=== PATIENT | female | born 2000 | race Two or more races ===

== ENCOUNTER 2025-09-26 15:55 | Observation (INO) | payer MEDICAID, SELFPAY ==
[2025-09-26] VITALS (22 sets, daily range): BP systolic 134; BP diastolic 72; PULSE 85–155; RESP 20–99; TEMP 36.9; O2SAT 96–99; BMI 35.4
--- NOTE | 2025-09-26 16:47 | XR_ITS ---
Examination: Complete OB ultrasound greater than 14 weeks Date and time of exam: September 26, 2025, 1700 hours INDICATIONS: Onset vaginal bleeding beginning 7 hours ago Findings: Viable intrauterine single fetus with single amniotic sac presentation cephalic spine maternal left Cardiac motion 157 bpm Placenta anterior grade 2 Medical cord insertion seen Amniotic fluid index 11.1 cm spine visualized Cervix 2.8 cm Ovaries obscured by the gestation. Composite estimated gestational age based on BPD, head circumference, abdominal circumference, femur length is 36 weeks 0 days Estimated weight 3169 g. Survey of intracranial anatomy, spinal anatomy, abdominal anatomy, four-chamber heart performed with no abnormalities identified. Impression: Viable intrauterine gestation in cephalic presentation No placental abruption.
== END 2025-09-26 18:34 | disposition home or self-care (01) ==
PROVIDERS: Admitting Provider Specialist; Visit Provider Specialist
DX: O46.93 Antepartum hemorrhage, unspecified, third trimester (principal); Z3A.36 36 weeks gestation of pregnancy
CPT/HCPCS: 59025; 59899; 76805

== ENCOUNTER 2025-09-26 21:47 | Inpatient (IN) | payer MEDICAID, SELFPAY ==
[2025-09-26] VITALS (9 sets, daily range): BP systolic 120–159; BP diastolic 70–96; PULSE 90–137; RESP 18–100; TEMP 37.2; O2SAT 97–98; BMI 35.0
[2025-09-26] MEDS: Ampicillin Inj 2,000 MG in SODIUM CHLORIDE 0.9% (POP) 100 ML 200 MG IV (22:45)
[2025-09-26] MEDS: fentaNYL CIT INJ 50 mCg/ML AMP 2ML 100 MCG IVP (22:45)
--- NOTE | 2025-09-26 22:57 | PD.LDHP ---
Documentation for date of: 09/26/25 OB Labor/Induct. HPI History of Present Illness : 5 Para: 4 Term pregnancies: 4 pregnancies: 0 Living children: 4 History of Abortions: Spontaneous and Elective: 0 History of Vaginal deliveries: 4 History of sections: No History of : No Date of last menstrual period: 01/16/25 AZIZA: 10/23/25 Gestational Age (weeks): 36 Gestational Age (days): 1 Gestational age based on last menstrual period: 36 Comments: H and P dictated on the STAT line #9 in [employer] : [id number] History of Present Adequate Care: No Past Medical History Surgical History SURGICAL: Negative Section Meds Home Medications and Allergies Home Medications ?Medication ?Instructions ?Recorded ?Confirmed ?Type vitamins-iron fumarate 27 1 tab PO QDAY 06/17/20 09/26/25 History mg iron-folic acid 0.8 mg tablet ( Vitamin) Allergies Allergy/AdvReac Type Severity Reaction Status Date / Time No Known Drug Allergies Allergy Unknown Verified 09/26/25 22:56 OB Exam Physical Exam Vital signs: Pulse Resp BP Pulse Ox 137 H 18 120/79 97 09/26/25 22:28 09/26/25 22:15 09/26/25 22:28 09/26/25 22:32
[2025-09-26 23:06] LABS: Basophils # (Auto) 0.0 Thou/mm3 (0.0-0.2); Basophils % (Auto) 0 % (0-2.5); Eosinophils # (Auto) 0.0 Thou/mm3 (0.0-0.5); Eosinophils % (Auto) 0 % (0-10); Hematocrit 36.2 % (36.0-46.0); Hemoglobin 12.7 g/dL (12.0-16.0); Immature Granulocytes Auto 0.11 Thou/mm3 (0.00-0.00); Lymphocytes # (Auto) 2.4 Thou/mm3 (1.0-4.8); Lymphocytes % (Auto) 22 % (10-50); Mean Corpuscular HGB Conc 35.1 g/dl (31.0-37.0); Mean Corpuscular Hemoglobin 31.3 pg (25.0-35.0); Mean Corpuscular Volume 89 fL (80-100); Monocytes # (Auto) 0.7 Thou/mm3 (0.0-0.8); Monocytes % (Auto) 6 % (0-12); Neutrophils # (Auto) 7.7 Thou/mm3 (1.8-7.7); Neutrophils % (Auto) 71 % (37-80); Nucleated Red Blood Cell # 0.00 Thou/mm3 (0.00-0.00); Nucleated Red Blood Cell % 0 /100 WBC (0); Platelet Count 232 Thou/mm3 (140-440); RDW Standard Deviation 41.5 fL (36.4-46.3); Red Blood Count 4.06 Miln/mm3 (4.00-5.20); White Blood Count 10.9 Thou/mm3 (3.6-11.0)
[2025-09-26 23:20] LABS: Alanine Aminotransferase 16 U/L (10-49); Albumin, Serum 4.0 gm/dL (3.5-5.0); Albumin/Globulin Ratio 1.7 (1.2-2.2); Alkaline Phosphatase 115 U/L (46-116); Anion Gap 13 (7-16); Aspartate Amino Transferase 20 U/L (0-34); BUN/Creatinine Ratio 12 Ratio (12-20); Bilirubin,Total 0.5 mg/dL (0.3-1.2); Blood Urea Nitrogen 7 mg/dL (9-23); Calcium 8.9 mg/dL (8.3-10.6); Calcium (Corrected) 8.9 mg/dL (8.5-10.1); Carbon Dioxide 19.6 mMol/L (20.0-31.0); Chloride 108 mMol/L (98-107); Creatinine (Component) 0.6 mg/dL (0.6-1.3); Estimated Creatinine Clearance 134.3 mL/min (>60); Globulin 2.3 gm/dL (2.3-3.5); Glucose 85 mg/dL (74-106); LDH (Lactate Dehydrogenase) 182 U/L (120-246); Osmolality,Calculated 278 (275-295); Potassium 3.7 mMol/L (3.4-5.1); Sodium 141 mMol/L (136-145); Total Protein 6.3 gm/dL (5.7-8.2); Uric Acid 5.6 mg/dL (3.1-7.8); eGFR > 60 See Note
[2025-09-26 23:23] LABS: Fibrinogen 512 mg/dL (175-375); INR 1.0 (0.9-1.3); Partial Thromboplastin Time 29.7 Seconds (22.0-36.0); Prothrombin Time 10.3 Seconds (9.0-12.2)
--- NOTE | 2025-09-26 23:29 | ESHP_ITS ---
RE: ADITI CAREY : 2000 DATE OF ADMISSION: 09/26/2025 HISTORY OF PRESENT ILLNESS: This is a 25-year-old 5, para 4-0-0-4 with due date of 10/23 with intrauterine at 36 weeks and 1 day who presents to labor and delivery, complaining of labor pains and is noted to be 5-6 cm. She was admitted with an unknown group B strep status, so she is being given ampicillin for group B strep prophylaxis. She denies any leaking or bleeding. She reports a normal movement. She has care at [facility], which was uncomplicated. ALLERGIES: NO KNOWN DRUG ALLERGIES. MEDICATIONS: multivitamin 1 p.o. daily. PAST MEDICAL HISTORY: Lumbosacral back pain. SOCIAL HISTORY: She denies any alcohol, drug use, or smoking. FAMILY HISTORY: Denies. OBSTETRIC HISTORY: Four previous full-term normal vaginal deliveries without complication. PAST SURGICAL HISTORY: Denies. REVIEW OF SYSTEMS: She denies any chest pain, palpitations, cough, fever, shortness of breath, or lower extremity pain. PHYSICAL EXAMINATION: VITAL SIGNS: Blood pressure 118/69, heart rate 88, respirations 18, temperature 98.6, weight 180 pounds. HEENT: Oropharynx and sclerae clear. LUNGS: Clear to auscultation bilaterally. HEART: Regular rate and rhythm. ABDOMEN: Gravid, consistent with estimated weight 3100 g. PELVIC: See RN notes. EXTREMITIES: Nontender. SKIN: No gross rashes or lesions. NEUROLOGICAL: No focal deficit. ASSESSMENT AND PLAN: Intrauterine at 36 weeks and 1 day, active labor, labor, anticipate spontaneous vaginal delivery. Informed consent was obtained, the patient made aware of the risk, complication, alternative, benefits of the proposed procedure and she agrees. She is aware of the risk of operative vaginal delivery and delivery and agrees with these modes of delivery if indicated. DT: 22:22:15 TT: 23:28:00 Ref: [id number] - TID: [id number]
[2025-09-26] MEDS: OXYTOCIN in NS 20 units 20 UNIT/1,000 ML BAG 125 UNIT IV (23:32)
[2025-09-26 23:38] LABS: Syphilis Nonreactive (Nonreactive)
[2025-09-27] VITALS (11 sets, daily range): BP systolic 106–138; BP diastolic 59–80; PULSE 68–101; RESP 18; TEMP 36.5–37.3; O2SAT 96–99
--- NOTE | 2025-09-27 00:04 | OBDSUM_ITS ---
Data ([facility]) Data Hx Section: No : 5 Term: 4 : 0 Livin Abortions: Spontaneous & Theraputic: 0 Delivery Data ([facility]) Labor Data Initiation of labor: Spontaneous Induction/Augmentation Agent: None ROM date: 09/26/25 ROM time: 23:31 Amniotic membrane rupture type: Spontaneous Amniotic fluid description: Clear Delivery Data EDC: 10/23/25 EDC calculated by:: LMP/early US confirmation Onset of labor date: 09/26/25 Onset of labor time: 15:30 Complete dilation date: 09/26/25 Complete dilation time: 23:31 [place] delivery date: 09/26/25 [place] delivery time: 23:31 Gestational age (weeks): 36 Gestational age (days): 1 Placenta delivery date: 09/26/25 Placenta delivery time: 23:42 Stage 1 total time: Labor - Stage 1 Duration 8 hours and 1 minutes Delivered by: Dr Rivas Delivery nurse: Enid Mantilla nurse: Drew Hannah Tannery Worker at delivery: No Support person(s) at delivery: FOB Delivery Method Delivery method: Normal Vaginal Delivery Presentation: Vertex position: OA Anesthesia Type Anesthesia Type: None Placenta Placenta delivery description: Spontaneous Cord blood sent to lab: Yes cord blood collection: Cord Blood Type Episiotomy Episiotomy description: None EBL Estimated blood loss (ml): 150 Umbilical Cord cord description: 3 Vessels Complications Complications: None Data ([facility]) Data order: 1 's gender: Female Identification band number: [id number] 1 minute: 8 5 minutes: 9
--- NOTE | 2025-09-27 00:04 | ESDS_ITS ---
DS: Providers Provider Date of admission: 09/26/25 21:47 Primary care physician: Physician No Primary/Family Admitting Provider: Nathaniel Rivas MD Attending Provider on Admission: Nathaniel Rivas MD Attending Provider on DC: Nathaniel Rivas MD Discharging Provider: Nathaniel Rivas MD DS: Diagnosis Problem List Completed Was Problem List Reviewed/Reconciled?: Yes Summary/Hosp Course Peripartum Data Delivery Method: Normal Vaginal Delivery Episiotomy Description: None Time Spent with Patient Time attestation: Total time spent providing and/or coordinating discharge services: Exam Vital Signs Temp Pulse Resp BP Pulse Ox 98.9 F 137 H 18 120/79 97 09/26/25 21:58 09/26/25 22:28 09/26/25 22:15 09/26/25 22:28 09/26/25 22:32 Discharge Plan Plan Patient Disposition: HOME (Self Care) Patient condition on transfer: Stable Prescriptions/Referrals Prescriptions/Med Rec: New ibuprofen 600 mg tablet 600 mg PO Q6H PRN (Reason: pain) Qty: 30 0RF Continued Vitamin 27 mg iron- 0.8 mg Tablet 1 tab PO QDAY Referrals: No Primary/Family,Physician [Primary Care Provider] Patient/Caregiver Discharge Instructions Discharge Activity: activity as tolerated Other Discharge Activity Instructions:: Follow up office 6 weeks. Print Language: Turkish Stand Alone Forms: Inessa Award Info., Patient Portal Info Letter, Work/Release Restrictions Discharge Order Discharge Orders: Discharge (Routine); Ordered 09/28/25 Ordered By: Nathaniel Rivas Planned Discharge Date 09/28/25
[2025-09-27] MEDS: IBUPROFEN TAB 400 MG TABLET 800 MG PO ×3 (00:10→21:01)
[2025-09-27 00:33] LABS: Amphetamine/Metham Scrn,Ur OB Negative (Negative); Benzoylecgonine Screen, Ur OB Negative (Negative); Opiate Screen,Urine OB Negative (Negative); THC Screen,Urine OB Negative (Negative)
[2025-09-27 00:34] LABS: Collection Type, Urine Clean Catch
[2025-09-27 00:43] LABS: Bilirubin,Urine Negative (Negative); Blood,Urine 2+ (Negative); Clarity,Urine Clear (Clear/Hazy); Color,Urine Lt-Yellow (Lt Yel-Yel); Glucose, Urine Negative (Negative); Hyaline Casts,Urine < 1 /hpf (0-1); Ketones,Urine 4+ (Negative); Leukocyte Esterase,Urine Negative (Negative); Nitrite,Urine Negative (Negative); PH,Urine 6.5 (5.0-7.0); Protein,Urine Negative (Neg - Trace); RBC,Urine 4 /hpf (0-3); Specific Gravity,Urine 1.017 (1.001-1.035); Squamous Epithelial Cell,Urine 6 /hpf (0-5); Urobilinogen,Urine Negative mg/dL (0.0-1.0); WBC,Urine 2 /hpf (0-5)
[2025-09-27] MEDS: TRANEXAMIC ACID 1,000 MG IVPB 1,000 MG/100 ML BAG 200 MG IV (01:27)
[2025-09-27] MEDS: METHYLERGONOVINE INJ 0.2 MG/ML VIAL IM (01:27)
[2025-09-27 06:19] LABS: Basophils # (Auto) 0.0 Thou/mm3 (0.0-0.2); Basophils % (Auto) 0 % (0-2.5); Eosinophils # (Auto) 0.0 Thou/mm3 (0.0-0.5); Eosinophils % (Auto) 0 % (0-10); Hematocrit 33.6 % (36.0-46.0); Hemoglobin 11.5 g/dL (12.0-16.0); Immature Granulocytes Auto 0.12 Thou/mm3 (0.00-0.00); Lymphocytes # (Auto) 2.2 Thou/mm3 (1.0-4.8); Lymphocytes % (Auto) 16 % (10-50); Mean Corpuscular HGB Conc 34.2 g/dl (31.0-37.0); Mean Corpuscular Hemoglobin 31.4 pg (25.0-35.0); Mean Corpuscular Volume 92 fL (80-100); Monocytes # (Auto) 0.9 Thou/mm3 (0.0-0.8); Monocytes % (Auto) 6 % (0-12); Neutrophils # (Auto) 11.0 Thou/mm3 (1.8-7.7); Neutrophils % (Auto) 77 % (37-80); Nucleated Red Blood Cell # 0.02 Thou/mm3 (0.00-0.00); Nucleated Red Blood Cell % 0 /100 WBC (0); Platelet Count 195 Thou/mm3 (140-440); RDW Standard Deviation 41.7 fL (36.4-46.3); Red Blood Count 3.66 Miln/mm3 (4.00-5.20); White Blood Count 14.3 Thou/mm3 (3.6-11.0)
--- NOTE | 2025-09-27 08:37 | ESPR_ITS ---
Subjective Subjective Interval history: Patient denies any primary complaint. She she is voiding and ambulating and tolerating a regular diet. She denies any excessive vaginal bleeding. She denies any dizziness or lightheadedness. She is passing flatus. She denies any chest pain palpitations shortness of breath or lower extremity pain. Exam Vital Signs Temp Pulse Resp BP Pulse Ox O2 Del Method 99.2 F 72 18 111/77 97 Room Air 09/27/25 05:00 09/27/25 05:00 09/27/25 05:00 09/27/25 05:00 09/27/25 05:00 09/27/25 05:00 Routine Respiratory Exam Comments: Clear to auscultation bilaterally Routine Cardiovascular Exam Comments: Regular regular rate and rhythm Routine Abdominal Exam Comments: Nontender, nondistended. Fundus firm Routine Extremities Exam Comments: Nontender Objective Labs 09/27/25 05:38 09/26/25 22:57 Labs: Laboratory Results - last 24 hr 09/26/25 09/26/25 09/26/25 22:27 22:57 23:55 WBC 10.9 RBC 4.06 Hgb 12.7 Hct 36.2 MCV 89 MCH 31.3 MCHC 35.1 RDW Std Deviation 41.5 Plt Count 232 Neut % (Auto) 71 Lymph % (Auto) 22 [place] % (Auto) 6 Eos % (Auto) 0 Baso % (Auto) 0 Neut # (Auto) 7.7 Lymph # (Auto) 2.4 [place] # (Auto) 0.7 Eos # (Auto) 0.0 Baso # (Auto) 0.0 Immature Gran # (Auto) 0.11 H Absolute Nucleated RBC 0.00 Immature Gran % 1 H Nucleated RBC % 0 PT 10.3 INR 1.0 APTT 29.7 Fibrinogen 512 H Sodium 141 Potassium 3.7 Chloride 108 H Carbon Dioxide 19.6 L Anion Gap 13 BUN 7 L Creatinine 0.6 Estim Creat Clear Calc 134.3 eGFR > 60 BUN/Creatinine Ratio 12 Glucose 85 Calculated Osmolality 278 Uric Acid 5.6 Calcium 8.9 Corrected Calcium 8.9 Total Bilirubin 0.5 AST 20 ALT 16 Alkaline Phosphatase 115 Lactate Dehydrogenase 182 Total Protein 6.3 Albumin 4.0 Globulin 2.3 Albumin/Globulin Ratio 1.7 Ur Collection Type Clean Catch Urine Color Lt-Yellow Urine Clarity Clear Urine pH 6.5 Ur Specific [place] 1.017 Urine Protein Negative Urine Glucose (UA) Negative Urine Ketones 4+ A Urine Blood 2+ A Urine Nitrite Negative Urine Bilirubin Negative Urine Urobilinogen (Auto) Negative Ur Leukocyte Esterase Negative Urine RBC 4 H Urine WBC 2 Ur Squamous Epith Cells 6 H Urine Bacteria None Hyaline Casts < 1 Urine Collection Time Cancelled Urine Total Volume Cancelled Ur Creatinine mg% Cancelled Ur Creatinine 24 Hour Cancelled Height (in) Cancelled Weight (lb) Cancelled Creatinine Clearance Cancelled Urine Opiates Screen Negative U Amphetamin/Meth Scrn Negative U Cocaine Metab Screen Negative U Marijuana (THC) Screen Negative Syphilis Serology Nonreactive Blood Type O Positive Antibody Screen NEGATIVE Blood Bank Wristband ID Yes 09/27/25 05:38 WBC 14.3 H RBC 3.66 L Hgb 11.5 L Hct 33.6 L MCV 92 MCH 31.4 MCHC 34.2 RDW Std Deviation 41.7 Plt Count 195 D Neut % (Auto) 77 Lymph % (Auto) 16 [place] % (Auto) 6 Eos % (Auto) 0 Baso % (Auto) 0 Neut # (Auto) 11.0 H Lymph # (Auto) 2.2 [place] # (Auto) 0.9 H Eos # (Auto) 0.0 Baso # (Auto) 0.0 Immature Gran # (Auto) 0.12 H Absolute Nucleated RBC 0.02 H Immature Gran % 1 H Nucleated RBC % 0 PT INR APTT Fibrinogen Sodium Potassium Chloride Carbon Dioxide Anion Gap BUN Creatinine Estim Creat Clear Calc eGFR BUN/Creatinine Ratio Glucose Calculated Osmolality Uric Acid Calcium Corrected Calcium Total Bilirubin AST ALT Alkaline Phosphatase Lactate Dehydrogenase Total Protein Albumin Globulin Albumin/Globulin Ratio Ur Collection Type Urine Color Urine Clarity Urine pH Ur Specific [place] Urine Protein Urine Glucose (UA) Urine Ketones Urine Blood Urine Nitrite Urine Bilirubin Urine Urobilinogen (Auto) Ur Leukocyte Esterase Urine RBC Urine WBC Ur Squamous Epith Cells Urine Bacteria Hyaline Casts Urine Collection Time Urine Total Volume Ur Creatinine mg% Ur Creatinine 24 Hour Height (in) Weight (lb) Creatinine Clearance Urine Opiates Screen U Amphetamin/Meth Scrn U Cocaine Metab Screen U Marijuana (THC) Screen Syphilis Serology Blood Type Antibody Screen Blood Bank Wristband ID Impressions Impression: day #1 status post spontaneous vaginal delivery of a infant at 36 weeks and 1 day Discharge home when baby is cleared Discharge instructions given Follow-up in the office in 6 weeks Assessment & Plan Time Spent With Patient Time: Total time spent is greater than 50% in coordination of care (as documented) at patient's floor/unit and/or counseling patient:
[2025-09-28 00:10] VITALS: BP 112/75; PULSE 65; PULSE 80; RESP 18; TEMP 36.6; O2SAT 97
[2025-09-28 03:50] VITALS: BP 117/83; PULSE 78; RESP 18; TEMP 36.5; O2SAT 98
[2025-09-28 07:05] VITALS: BP 127/85; PULSE 69; RESP 18; TEMP 36.4; O2SAT 98
--- NOTE | 2025-09-28 08:16 | PD.LDPPPRG ---
Subjective Subjective Interval history: Patient denies any primary complaint. She is voiding and ambulating tolerating her diet she is passing flatus she denies any excessive vaginal bleeding she denies any dizziness or lightheadedness she denies any chest pain palpitation shortness of breath or lower extremity pain Exam Vital Signs Temp Pulse Resp BP Pulse Ox O2 Del Method 97.6 F 69 18 127/85 H 98 Room Air 09/28/25 07:05 09/28/25 07:05 09/28/25 07:05 09/28/25 07:05 09/28/25 07:05 09/28/25 07:05 Routine Respiratory Exam Comments: Clear to auscultation bilaterally Routine Cardiovascular Exam Comments: Regular rate and rhythm Routine Abdominal Exam Comments: Fundus is firm nontender Routine Extremities Exam Comments: No edema nontender Objective Labs 09/27/25 05:38 09/26/25 22:57 Impressions Impression: day #1 status post vaginal delivery support Encourage ambulation Discharge home when baby is cleared Follow-up in the office in 6 weeks.
[2025-09-28 11:30] VITALS: BP 113/76; PULSE 79; RESP 16; TEMP 36.6
--- NOTE | 2025-09-28 14:11 | PC.NURSE ---
according to SW, patient has necessary resources for safe discharge.
--- NOTE | 2025-09-28 14:25 | PC.NURSE ---
patient refused to do the survey 2024
--- NOTE | 2025-09-28 14:40 | PC.SS ---
Patient is a 25 year old female presenting to the hospital for labor and delivery. LANDING MAN met with patient and patient life partner Carl at bedside. Patient gave consent for Carl to remain in the room. LANDING MAN introduced self, role, and reason for visit. Patient confirmed demographic information. Patient stated that she lives with her partner Carl and her four children (7-female, 5-male, 2-F, 1-male). Patient stated she has all of baby supplies needed, is connected to WIC. Patient denies drug/alcohol, DV, CWS, MH. Patient stated that infants production lead will be [facility] at [facility]. Patient stated that had hearing test and will be formula feeding and breast feeding. LANDING MAN provided psychoeducation on warning signs of post depression and provided resource list for mental health, clothing, and [facility]. No ss concerns or needs.
== END 2025-09-28 15:00 | disposition home or self-care (01) | DRG 560 ==
LOC: S4SX 09-27 00:15 → S4NX 09-27 08:39 → S4SX 09-29 05:35
PROVIDERS: Admitting Provider Specialist; Visit Provider Specialist
DX: O60.14X0 Preterm labor third trimester with preterm delivery third trimester, not applicable or unspecified (principal); Z3A.36 36 weeks gestation of pregnancy; Z37.0 Single live birth
CPT/HCPCS: 36415; 59025; 59899; 80053; 80307; 81001; 82575; 83615; 84550; 85025; 85384; 85610; 85730; 86780; 86850; 86900; 86901; J0290; J2210; J2590; J3010; J3490; S0191; A9270